=== PATIENT | female | born 1940 | race Two or more races ===

== ENCOUNTER 2018-03-15 17:05 | Emergency (ER) | payer OTHER ==
[~2018-03-15] VITALS: Ht 152.4 cm; Wt 61.2 kg
[~2018-03-15 17:05] MED LIST: ALENDRONATE SODI5 MG PO; ALEVE220 M1 PO; CEFADROXIL500 MG PO; LIPITOR20 MG; LUMIGAN2.5 M1 OP; METOPROLOL SUC100 MG; PERCOCET 5/3251 TAB PO; SIMBRINZA 1%-0.28 ML OP
[2018-03-15] MEDS ORDERED: BETAGAN10 ML (17:41)
[2018-03-15] MEDS ORDERED: SIMBRINZA 1%-0.28 ML (17:43)
== END 2018-03-15 21:26 | disposition home or self-care (01) ==
LOC: ER 17:05
DX: S20.212A Contusion of left front wall of thorax, initial encounter (principal); S80.01XA Contusion of right knee, initial encounter; S90.122A Contusion of left lesser toe(s) without damage to nail, initial encounter; M47.892 Other spondylosis, cervical region; W18.09XA Striking against other object with subsequent fall, initial encounter; Y93.89 Activity, other specified; Y92.018 Other place in single-family (private) house as the place of occurrence of the external cause; Y99.8 Other external cause status